=== PATIENT | female | born 1990 | race African-American/Black ===

== ENCOUNTER 2019-01-28 01:34 | Emergency (ER) | payer OTHER ==
[~2019-01-28] VITALS: Ht 162.5 cm; Wt 59.0 kg
[~2019-01-28 01:34] MED LIST: PRENATAL PO; PROAIR HFA8.5 GM; PROVENTIL HFA6.7 G1 INH; ZPAK PO
[2019-01-28] MEDS ORDERED: NOHOMEMEDICATIONS (02:36)
[2019-01-28] MEDS ORDERED: MOBIC15 MG PO (06:46)
[2019-01-28 07:09] VITALS: BP 132/80
== END 2019-01-28 07:00 | disposition home or self-care (01) ==
LOC: ER 01:34
DX: S43.084A Other dislocation of right shoulder joint, initial encounter (principal); S00.81XA Abrasion of other part of head, initial encounter; F10.129 Alcohol abuse with intoxication, unspecified; Y90.9 Presence of alcohol in blood, level not specified; J45.909 Unspecified asthma, uncomplicated; Y08.89XA Assault by other specified means, initial encounter; Y93.89 Activity, other specified; Y92.89 Other specified places as the place of occurrence of the external cause; Y99.8 Other external cause status